=== PATIENT | male | born 1950 | race Caucasian/White ===

== ENCOUNTER 2019-06-15 14:38 | Emergency (ER) | payer MEDICARE, BC ==
[2019-06-15 15:37] VITALS: BP 144/95
--- NOTE | 2019-06-15 15:54 | EDM.PDOC ---
ED HPI GENERAL MEDICAL PROBLEM - General Chief Complaint: Lower Extremity Injury/Pain Stated Complaint: SWOLLEN RIGHT LEG & DISCOLORED Time Seen by Provider: 06/15/19 15:43 Source of Information: Reports: Patient History Limitations: Reports: No Limitations - History of Present Illness INITIAL COMMENTS - FREE TEXT/NARRATIVE: Patient is a 68-year-old male who presents to the ED complaining of pain, bruising, some mild swelling along the right posterior knee. Started this past Monday and has progressed. Does not recall any activity or trauma that may have precipitated this. States he is on Coumadin for repeated blood clots. Last INR was this past Monday and was high per patient. Notes some increasing pain to the affected area. No loss of sensation. Has been mildly short of breath at the end of the day and with exertion. Suspects chronic. Denies any chest pain, PND , orthopnea, increased edema, hemoptysis, cough, fever, or abdominal pain. Right Leg Pain Score (Numeric/FACES): 5 - Related Data Allergies Allergy/AdvReac Type Severity Reaction Status Date / Time No Known Allergies Allergy Verified 06/15/19 15:37 Home Meds: Home Meds ClonazePAM [KlonoPIN] 0.5 mg PO BEDTIME 03/25/16 [History] ClonazePAM [KlonoPIN] 0.25 mg PO Q12HR PRN 10/24/16 [History] Psyllium Husk [Psyllium Fiber] 1 tbsp PO DAILY PRN 10/24/16 [History] Bisacodyl [Dulcolax] 5 mg PO DAILY PRN #30 tablet 10/25/16 [Rx] Cyclobenzaprine [Flexeril] 10 mg PO Q8H #60 tablet 10/28/16 [Rx] Lisinopril [Prinivil] 20 mg PO DAILY #30 tablet 10/28/16 [Rx] Pantoprazole [ProTONIX] 40 mg PO DAILY #30 tab.cr 10/28/16 [Rx] L.acidoph,Paracasei, B.lactis [Probiotic] 1 tab PO DAILY 06/15/19 [History] Rosuvastatin [Crestor] 5 mg PO DAILY 06/15/19 [History] Tamsulosin [Flomax] 0.4 mg PO DAILY 06/15/19 [History] Warfarin Sodium [Coumadin] 2.5 mg PO TUTHSA 06/15/19 [History] Warfarin Sodium [Coumadin] 5 mg PO SUMOWEFR 06/15/19 [History] traMADol [Ultram] 50 mg PO ASDIRECTED PRN 06/15/19 [History] Past Medical History HEENT History: Reports: Hard of Hearing, Impaired Vision Other HEENT History: 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 Gastrointestinal History: Reports: Diverticulosis Genitourinary History: Reports: Prostate Disorder Other Genitourinary History: enlarged prostate Other Musculoskeletal History: Right knee, leg, hip, groin pain last 6 months. 10 years ago trauma to right knee - gives him pain. herniated discs Neurological History: Reports: Vertigo Other Neuro History: dizziness but comes and goes Psychiatric History: Reports: Anxiety, Depression Other Psychiatric History: Anxiety gives him some dizziness and heart palpatation feelings - does well on antianxiety Hematologic History: Reports: Anticoagulation Therapy - Infectious Disease History Infectious Disease History: Reports: Chicken Pox, Influenza, Shingles Other Infectious Disease History: Shilgles in Left eye a 4-5 years ago - Past Surgical History Cardiovascular Surgical History: Reports: Other (See Below) Other Cardiovascular Surgeries/Procedures: angioplasty GI Surgical History: Reports: Colonoscopy, Hernia, Inguinal Neurological Surgical History: Reports: None Musculoskeletal Surgical History: Reports: Other (See Below) Dermatological Surgical History: Reports: None Social & Family History - Family History HEENT: Reports: Glaucoma, Impaired Vision Other HEENT Family History: siblings Cardiac: Reports: CAD, High Cholesterol, Hypertension, Stent Other Cardiac Family History: brothers, mom Respiratory: Reports: COPD Other Respiratory Family Hisory: sister GI: Reports: Diverticulitis Other GI Family History: sister : Reports: Other (See Below) Other Family History: brother enlarged prostates OBGYN: Reports: Musculoskeletal: Reports: Back pain, Chronic Other Musculoskeletal Family History: mom and brother had back surgery,bone fusions Hematologic: Reports: Anemia Other Hematologic Family History: brother aplastic anemia - Tobacco Use Smoking Status *Q: Former Smoker Used Tobacco, but Quit: Yes Month/Year Tobacco Last Used: 1967 - Caffeine Use Caffeine Use: Reports: None - Recreational Drug Use Recreational Drug Use: No - Living Situation & Occupation Occupation: Employed Review of Systems - Review of Systems Review Of Systems: ROS reveals no pertinent complaints other than HPI. ED EXAM, GENERAL - Physical Exam Exam: See Below Exam Limited By: No Limitations General Appearance: Alert, WD/WN, No Apparent Distress Ears: Hearing Grossly Normal Nose: Normal Inspection Throat/Mouth: Normal Voice, No Airway Compromise Head: Atraumatic, Normocephalic Neck: Normal Inspection, Supple Respiratory/Chest: No Respiratory Distress, Lungs Clear, Normal Breath Sounds, No Accessory Muscle Use, Chest Non-Tender Cardiovascular: Normal Peripheral Pulses, Regular Rate, Rhythm, No Murmur Peripheral Pulses: 2+: Radial (L), Radial (R), Posterior Tibial (L), Posterior Tibial (R) GI/Abdominal: Normal Bowel Sounds, Soft, Non-Tender, No Organomegaly, No Distention Extremities: Other (Mild swelling noted to the right posterior knee with bruising present. No limitation with range of motion noted. No pain to the posterior S at the lower leg with palpation. No bruising, redness, increased warmth, or findings concerning for infection.) Neurological: Alert, Oriented, CN II-XII Intact, Normal Cognition, No Motor/ Sensory Deficits Psychiatric: Normal Affect, Normal Mood Skin Exam: Warm, Dry, Intact, Normal Color Course - Vital Signs Last Recorded V/S: Last Vital Signs Temp 97.3 F 06/15/19 15:33 Pulse 77 06/15/19 15:33 Resp 20 06/15/19 15:33 BP 144/95 H 06/15/19 15:33 Pulse Ox 95 06/15/19 15:33 - Orders/Labs/Meds Orders: Active Orders 24 hr Category Date Time Status EKG Documentation Completion [RC] STAT Care 06/15/19 15:50 Active Chest 1V Frontal [CR] Stat Exams 06/15/19 15:50 Taken Labs: Laboratory Tests 06/15/19 06/15/19 06/15/19 Range/Units 13:56 13:56 13:56 WBC 7.57 (4.23-9.07) K/mm3 RBC 5.26 (4.63-6.08) M/mm3 Hgb 14.9 (13.7-17.5) gm/L Hct 45.8 (40.1-51.0) % MCV 87.1 (79.0-92.2) fl MCH 28.3 (25.7-32.2) pg MCHC 32.5 (32.2-35.5) g/dl RDW Std Deviation 45.5 H (35.1-43.9) fL Plt Count 153 L (163-337) K/mm3 MPV 10.9 (9.4-12.3) fl Neutrophils % (Manual) 72 H (40-60) % Band Neutrophils % 0 (0-10) % Lymphocytes % (Manual) 17 L (20-40) % Atypical Lymphs % 0 % Monocytes % (Manual) 8 (2-10) % Eosinophils % (Manual) 3 (0.8-7.0) % Basophils % (Manual) 0 L (0.2-1.2) Platelet Estimate Adequate RBC Morph Comment Normal PT 27.2 H (9.7-12.0) SECONDS INR 2.64 APTT 40 H (22-31) SECONDS Sodium 140 (136-145) mEq/L Potassium 4.1 (3.5-5.1) mEq/L Chloride 104 (98-107) mEq/L Carbon Dioxide 27 (21-32) mEq/L Anion Gap 13.1 (5-15) BUN 18 (7-18) mg/dL Creatinine 0.9 (0.7-1.3) mg/dL Est Cr Clr Drug Dosing 68.92 mL/min Estimated GFR (MDRD) > 60 (>60) mL/min BUN/Creatinine Ratio 20.0 H (14-18) Glucose 88 (80-115) mg/dL Calcium 8.9 (8.5-10.1) mg/dL Total Bilirubin 0.8 (0.2-1.0) mg/dL AST 24 (15-37) U/L ALT 23 (16-63) U/L Alkaline Phosphatase 52 (46-116) U/L Troponin I (0.00-0.056) ng/mL C-Reactive Protein 0.8 (<1.0) mg/dL Total Protein 7.2 (6.4-8.2) g/dl Albumin 3.5 (3.4-5.0) g/dl Globulin 3.7 gm/dL Albumin/Globulin Ratio 1.0 (1-2) 06/15/19 Range/Units 13:56 WBC (4.23-9.07) K/mm3 RBC (4.63-6.08) M/mm3 Hgb (13.7-17.5) gm/L Hct (40.1-51.0) % MCV (79.0-92.2) fl MCH (25.7-32.2) pg MCHC (32.2-35.5) g/dl RDW Std Deviation (35.1-43.9) fL Plt Count (163-337) K/mm3 MPV (9.4-12.3) fl Neutrophils % (Manual) (40-60) % Band Neutrophils % (0-10) % Lymphocytes % (Manual) (20-40) % Atypical Lymphs % % Monocytes % (Manual) (2-10) % Eosinophils % (Manual) (0.8-7.0) % Basophils % (Manual) (0.2-1.2) Platelet Estimate RBC Morph Comment PT (9.7-12.0) SECONDS INR APTT (22-31) SECONDS Sodium (136-145) mEq/L Potassium (3.5-5.1) mEq/L Chloride (98-107) mEq/L Carbon Dioxide (21-32) mEq/L Anion Gap (5-15) BUN (7-18) mg/dL Creatinine (0.7-1.3) mg/dL Est Cr Clr Drug Dosing mL/min Estimated GFR (MDRD) (>60) mL/min BUN/Creatinine Ratio (14-18) Glucose (80-115) mg/dL Calcium (8.5-10.1) mg/dL Total Bilirubin (0.2-1.0) mg/dL AST (15-37) U/L ALT (16-63) U/L Alkaline Phosphatase (46-116) U/L Troponin I < 0.017 (0.00-0.056) ng/mL C-Reactive Protein (<1.0) mg/dL Total Protein (6.4-8.2) g/dl Albumin (3.4-5.0) g/dl Globulin gm/dL Albumin/Globulin Ratio (1-2) - Re-Assessments/Exams Free Text/Narrative Re-Assessment/Exam: Will go ahead and obtain feel duplex right lower extremity to evaluate for blood clot. I suspect this more likely secondary to recent trauma with history of elevated INR this past Monday. Initial labs and will include: CBC, chem 14, CRP, coag studies. Due to shortness of breath in the afternoon with no PND or orthopnea suspect this is more likely related to deconditioning. He's had no cough, fever, or hemoptysis. I will obtain EKG, chest x-ray, and troponin. 06/15/19 17:44 Labs reviewed: Chem 14 essentially normal, CRP normal, troponin less than 0.017, hemoglobin 14.9, white blood cell count 7.57, platelet count 153, neutrophil percentage is elevated at 72 with no left shift, and INR is 2.64. INR is therapeutic. Ultrasound of the right lower extremity revealed no deep venous thrombosis. Discussed results of labs and ultrasound with patient. Return precautions discussed with patient. He voiced his understanding. He will followup with PCP as needed. Discharge instructions as documented. Departure - Departure Time of Disposition: 17:45 Disposition: Home, Self-Care 01 Condition: Good Clinical Impression: Hematoma, Posterior right knee pain - Discharge Information Instructions: Knee Pain, Adult Referrals: Svetlana Boogie PA-C [Primary Care Provider] - Forms: ED Department Discharge Additional Instructions: Ultrasound revealed no blood clot. INR is therapeutic at 2.64. Continue taking all your home medications as prescribed. May apply warm compresses to the posterior aspect of your leg to help dissipate the hematoma. Refrain from any activities that cause worsening pain. Monitor for worsening symptoms. Please f /u with PCP this coming week. Return to the E.D. for any new or worsening symptoms. - My Orders Last 24 Hours: My Active Orders 06/15/19 15:50 EKG Documentation Completion [RC] STAT Chest 1V Frontal [CR] Stat - Assessment/Plan Last 24 Hours: My Active Orders 06/15/19 15:50 EKG Documentation Completion [RC] STAT Chest 1V Frontal [CR] Stat
--- NOTE | 2019-06-15 17:36 | US ---
Right lower extremity deep venous ultrasound: Duplex and color flow imaging was obtained of the right common femoral, proximal greater saphenous, superficial femoral, popliteal, posterior tibial and peroneal veins. Left common femoral vein was also evaluated. Findings: Normal phasic flow, augmentation and compression is seen. Impression: 1. No deep venous thrombosis is seen within the right lower extremity or within the left common femoral vein. Diagnostic code #1
--- NOTE | 2019-06-16 12:23 | CR ---
Chest: Portable view of the chest was obtained. Comparison: Prior chest x-ray of 11/03/18. Heart size is slightly prominent but accentuated from portable technique. Tortuous thoracic aorta is identified. Slight nodular density which is believed to represent minimal atelectasis is seen within the lateral left costophrenic angle. Lungs otherwise are clear with no acute parenchymal change. Mild degenerative change is partially visualized within the lumbar spine. Impression: 1. Findings as noted above. Nothing acute is identified on portable chest x-ray. Diagnostic code #2
== END 2019-06-15 17:58 | disposition home or self-care (01) ==
LOC: JD.ED 14:38
DX: S80.01XA Contusion of right knee, initial encounter (principal); I10 Essential (primary) hypertension; F41.9 Anxiety disorder, unspecified; F32.9 Major depressive disorder, single episode, unspecified; Z79.899 Other long term (current) drug therapy; Z79.01 Long term (current) use of anticoagulants; Z86.718 Personal history of other venous thrombosis and embolism; X58.XXXA Exposure to other specified factors, initial encounter
CPT/HCPCS: 36415; 71045; 71045-26; 80053; 84484; 85007; 85027; 85610; 85730; 86140; 93005; 93971-26-RT; 93971-RT; 99284-25

== ENCOUNTER 2019-08-01 15:52 | Emergency (ER) | payer MEDICARE, BC ==
[2019-08-01 16:13] VITALS: BP 156/79; PULSE 69
--- NOTE | 2019-08-01 16:25 | EDM.PDOC ---
ED HPI GENERAL MEDICAL PROBLEM - General Chief Complaint: Lower Extremity Injury/Pain Stated Complaint: L FOOT SKIN COMPLAINT Time Seen by Provider: 08/01/19 16:25 Source of Information: Reports: Patient History Limitations: Reports: No Limitations - History of Present Illness INITIAL COMMENTS - FREE TEXT/NARRATIVE: 68-year-old male presents to the ED at the request of his primary care practitioner Dilma Boogie in [facility]. he reports that on July 28 he was stacking cans of beans in his cupboard at home and one fell off landing on the dorsal aspect of his left foot. He had a stocking on at that time. The area subsequently became very bruised swollen and ecchymotic. It also then developed to subcutaneous blisters filled with blood. The doctor on Monday and was started on cephalexin 500 mg 3 times a day. He has no fever or chills. His appetite remains good. On review today however the foot is looking much worse of course because of increased ecchymoses as he is on Coumadin. It also started to show signs of cellulitis with an increased area of warmth all way up his right leg particularly around where his boot would go. He is wearing a cast boot brace that he had on his left leg after pulling his gastrocnemius muscle. He states his only thing he could get on with a large blisters on his dorsal foot. Walking with a definitive limb. He states the pain is intensified in the dorsal aspect of the foot and up his anterior leg. This is in spite of being on antibiotic therapy for the last 2 and half days. He is not diabetic. 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 Was felt to be prudent that he stay on Coumadin for the rest of his life. He reports that his legs are chronically edematous particularly the right one more so than the left. He is supposed to wear compression stockings but states it's too hard to get them on and off. He sometimes will wrap his legs with Julio wraps. Onset: Sudden Onset Date: 07/28/19 Duration: Day(s):, Constant, Getting Worse Location: Reports: Lower Extremity, Left (Left dorsal foot and now pain rating up his left anterior leg.) Quality: Reports: Ache, Throbbing Severity: Moderate Improves with: Reports: Rest (In elevation.) Worsens with: Reports: Other (Walking.) Context: Denies: Activity, Exercise, Lifting, Sick Contact, Trauma, Other Associated Symptoms: Reports: Malaise. 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 (see below) (None.) Left Feet Pain Score (Numeric/FACES): 5 - Related Data Allergies Allergy/AdvReac Type Severity Reaction Status Date / Time No Known Allergies Allergy Verified 06/15/19 15:37 Home Meds: Home Meds Psyllium Husk [Psyllium Fiber] 1 tbsp PO DAILY PRN 10/24/16 [History] Rosuvastatin [Crestor] 5 mg PO BEDTIME 06/15/19 [History] Tamsulosin [Flomax] 0.4 mg PO DAILY 06/15/19 [History] Warfarin Sodium [Coumadin] 2.5 mg PO MOWETH 06/15/19 [History] Warfarin Sodium [Coumadin] 5 mg PO SUTUFRSA 06/15/19 [History] traMADol [Ultram] 50 mg PO TID PRN 06/15/19 [History] Bacitracin 30 gm TP DAILY #1 tube 08/01/19 [Rx] Cephalexin [Keflex] 500 mg PO TID 08/01/19 [History] Cyclobenzaprine [Flexeril] 10 mg PO DAILY 08/01/19 [History] Doxycycline [Vibramycin] 100 mg PO DAILY #20 cap 08/01/19 [Rx] Lisinopril 30 mg PO DAILY 08/01/19 [History] Past Medical History HEENT History: Reports: Hard of Hearing, Impaired Vision Other HEENT History: 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 Gastrointestinal History: Reports: Diverticulosis Genitourinary History: Reports: Prostate Disorder Other Genitourinary History: enlarged prostate Other Musculoskeletal History: Right knee, leg, hip, groin pain last 6 months. 10 years ago trauma to right knee - gives him pain. herniated discs Neurological History: Reports: Vertigo Other Neuro History: dizziness but comes and goes Psychiatric History: Reports: Anxiety, Depression Other Psychiatric History: Anxiety gives him some dizziness and heart palpatation feelings - does well on antianxiety Hematologic History: Reports: Anticoagulation Therapy - Infectious Disease History Infectious Disease History: Reports: Chicken Pox, Influenza, Shingles Other Infectious Disease History: Shilgles in Left eye a 4-5 years ago - Past Surgical History Cardiovascular Surgical History: Reports: Other (See Below) Other Cardiovascular Surgeries/Procedures: angioplasty GI Surgical History: Reports: Colonoscopy, Hernia, Inguinal Neurological Surgical History: Reports: None Musculoskeletal Surgical History: Reports: Other (See Below) Dermatological Surgical History: Reports: None Social & Family History - Family History HEENT: Reports: Glaucoma, Impaired Vision Other HEENT Family History: siblings Cardiac: Reports: CAD, High Cholesterol, Hypertension, Stent Other Cardiac Family History: brothers, mom Respiratory: Reports: COPD Other Respiratory Family Hisory: sister GI: Reports: Diverticulitis Other GI Family History: sister : Reports: Other (See Below) Other Family History: brother enlarged prostates OBGYN: Reports: Musculoskeletal: Reports: Back pain, Chronic Other Musculoskeletal Family History: mom and brother had back surgery,bone fusions Hematologic: Reports: Anemia Other Hematologic Family History: brother aplastic anemia - Tobacco Use Smoking Status *Q: Former Smoker Used Tobacco, but Quit: Yes Month/Year Tobacco Last Used: 1977 - Caffeine Use Caffeine Use: Reports: None - Recreational Drug Use Recreational Drug Use: No - Living Situation & Occupation Occupation: Employed Review of Systems - Review of Systems Review Of Systems: See Below Constitutional: Reports: No Symptoms Eyes: Reports: Glasses Ears: Reports: No Symptoms Nose: Reports: No Symptoms Mouth/Throat: Reports: No Symptoms Respiratory: Reports: No Symptoms Cardiovascular: Reports: No Symptoms GI/Abdominal: Reports: No Symptoms Genitourinary: Reports: Other (Urinary frequency which is common.) Musculoskeletal: Reports: Leg Pain (Currently having a lot of pain in his left dorsal foot and left lower leg. Leg pain), Foot Pain, Other (Chronic swelling and edema both lower extremities worse on the right as compared to the left.) Skin: Reports: Other (2 large blisters dorsal aspect of his left foot one of which has opened up and drained spontaneously. The wound was opened up in the ED and cultures were obtained.) Neurological: Reports: Paresthesia Psychiatric: Reports: No Symptoms ED EXAM, GENERAL - Physical Exam Exam: See Below Exam Limited By: No Limitations General Appearance: Alert, WD/WN, No Apparent Distress, Other (Temp to 36.1. Pulse is 69 and sinus respiratory distress 20. Sats are 96% on room air BP slightly elevated 156/79.) Eye Exam: Bilateral Eye: Normal Inspection Respiratory/Chest: No Respiratory Distress, Lungs Clear (Mildly decreased air into the lower 20% of lung anderson bilaterally.), Normal Breath Sounds, No Accessory Muscle Use, Decreased Breath Sounds Cardiovascular: Regular Rate, Rhythm, No Gallop, No Murmur, No Rub. No: Normal Peripheral Pulses, No Edema Peripheral Pulses: 1+: Posterior Tibial (L), Posterior Tibial (R), Dorsalis Pedis (L), Dorsalis Pedis (R) GI/Abdominal: Normal Bowel Sounds, Soft, Non-Tender, No Organomegaly, No Abnormal Bruit, No Mass, Pelvis Stable, Other (Male) Exam: No Hernia (No previous abdominal surgery.) Back Exam: Normal Inspection, Full Range of Motion. No: CVA Tenderness (L), CVA Tenderness (R) Extremities: Other (Examination the right lower extremity shows 2+ to 3+ pitting edema. The left lower extremity shows 2+ pitting edema. The left foot shows diffuse ecchymoses to dorsal aspect of all of his toes dorsal aspect of the entire foot with increased erythema surrounding an open blister mid dorsal foot. There is also an area of erythema in a band like fashion on his mid left leg. It is warm to palpation and mildly tender. It has the appearance of a cellulitis developing. The other blister that was more distal to the one that had already broken open was drained with an 18-gauge needle and cultures were obtained from this area as well as the dorsal aspect of the foot. Drained serosanguineous fluid.) Neurological: Alert, Oriented, CN II-XII Intact, Normal Cognition, Other. No: Normal Gait Psychiatric: Normal Affect (Limping gait.), Normal Mood Skin Exam: Warm, Dry, Ecchymosis, Erythema (A ecchymoses dorsal aspect left foot.), Increased Warmth ( Erythema with increased warmth wrist last back left foot and leg.), Other (2 large blisters dorsal aspect left foot one of which is already opened and drained and the second was drained in the ED.). No: Intact Course - Vital Signs Last Recorded V/S: Last Vital Signs Temp 36.1 C 08/01/19 16:11 Pulse 69 08/01/19 16:11 Resp 20 08/01/19 16:11 BP 156/79 H 08/01/19 16:11 Pulse Ox 96 08/01/19 16:11 - Orders/Labs/Meds Orders: Active Orders 24 hr Category Date Time Status Peripheral IV Care [RC] . DIRECTED Care 08/01/19 16:35 Active Foot 2V Lt [CR] Stat Exams 08/01/19 16:58 Taken CULTURE ANAEROBIC + SMEAR [RM] Stat Lab 08/01/19 17:09 Ordered CULTURE BLOOD [BC] Stat Lab 08/01/19 16:35 Ordered CULTURE BLOOD [BC] Stat Lab 08/01/19 16:35 Ordered CULTURE WOUND [RM] Stat Lab 08/01/19 17:07 Ordered CULTURE WOUND [RM] Stat Lab 08/01/19 17:14 Ordered Ondansetron [Zofran ODT] Med 08/01/19 18:24 Once 4 mg PO ONETIME ONE Sodium Chloride 0.9% [Saline Flush] Med 08/01/19 16:33 Active 10 ml FLUSH ASDIRECTED PRN cefTRIAXone [Rocephin] 2 gm Med 08/01/19 16:45 Active Sodium Chloride 0.9% [Normal Saline] 100 ml IV Q24H Blood Culture x2 Reflex Set [OM.PC] Stat Oth 08/01/19 16:34 Ordered Peripheral IV Insertion Adult [OM.PC] Stat Oth 08/01/19 16:35 Ordered Medication Orders Ceftriaxone Sodium 2 gm/ (Sodium Chloride) 100 mls @ 200 mls/hr IV Q24H PHYLLIS Last Admin: 08/01/19 17:51 Dose: 200 mls/hr Ondansetron HCl (Zofran Odt) 4 mg PO ONETIME ONE Stop: 08/01/19 18:25 Sodium Chloride (Saline Flush) 10 ml FLUSH ASDIRECTED PRN PRN Reason: Keep Vein Open Last Admin: 08/01/19 17:51 Dose: 10 ml Labs: Laboratory Tests 08/01/19 08/01/19 08/01/19 Range/Units 16:50 16:50 16:50 WBC 6.71 (4.23-9.07) K/mm3 RBC 5.11 (4.63-6.08) M/mm3 Hgb 14.4 (13.7-17.5) gm/dl Hct 44.6 (40.1-51.0) % MCV 87.3 (79.0-92.2) fl MCH 28.2 (25.7-32.2) pg MCHC 32.3 (32.2-35.5) g/dl RDW Std Deviation 45.3 H (35.1-43.9) fL Plt Count 149 L (163-337) K/mm3 MPV 10.9 (9.4-12.3) fl Neutrophils % (Manual) 70 H (40-60) % Band Neutrophils % 1 (0-10) % Lymphocytes % (Manual) 20 (20-40) % Atypical Lymphs % 0 % Monocytes % (Manual) 3 (2-10) % Eosinophils % (Manual) 6 (0.8-7.0) % Basophils % (Manual) 0 L (0.2-1.2) Platelet Estimate Adequate RBC Morph Comment Normal ESR (0-15) mm/hr PT 13.0 H D (9.7-12.0) SECONDS INR 1.21 Sodium 141 (136-145) mEq/L Potassium 4.1 (3.5-5.1) mEq/L Chloride 106 (98-107) mEq/L Carbon Dioxide 28 (21-32) mEq/L Anion Gap 11.1 (5-15) BUN 15 (7-18) mg/dL Creatinine 0.9 (0.7-1.3) mg/dL Est Cr Clr Drug Dosing 68.92 mL/min Estimated GFR (MDRD) > 60 (>60) mL/min BUN/Creatinine Ratio 16.7 (14-18) Glucose 94 (80-115) mg/dL Calcium 8.9 (8.5-10.1) mg/dL Magnesium 2.5 H (1.8-2.4) mg/dl Total Bilirubin 0.7 (0.2-1.0) mg/dL AST 19 (15-37) U/L ALT 26 (16-63) U/L Alkaline Phosphatase 62 (46-116) U/L C-Reactive Protein 0.7 (<1.0) mg/dL NT-Pro-B Natriuret Pep (0-125) pg/mL Total Protein 7.3 (6.4-8.2) g/dl Albumin 3.6 (3.4-5.0) g/dl Globulin 3.7 gm/dL Albumin/Globulin Ratio 1.0 (1-2) 08/01/19 08/01/19 Range/Units 16:50 16:50 WBC (4.23-9.07) K/mm3 RBC (4.63-6.08) M/mm3 Hgb (13.7-17.5) gm/dl Hct (40.1-51.0) % MCV (79.0-92.2) fl MCH (25.7-32.2) pg MCHC (32.2-35.5) g/dl RDW Std Deviation (35.1-43.9) fL Plt Count (163-337) K/mm3 MPV (9.4-12.3) fl Neutrophils % (Manual) (40-60) % Band Neutrophils % (0-10) % Lymphocytes % (Manual) (20-40) % Atypical Lymphs % % Monocytes % (Manual) (2-10) % Eosinophils % (Manual) (0.8-7.0) % Basophils % (Manual) (0.2-1.2) Platelet Estimate RBC Morph Comment ESR 12 (0-15) mm/hr PT (9.7-12.0) SECONDS INR Sodium (136-145) mEq/L Potassium (3.5-5.1) mEq/L Chloride (98-107) mEq/L Carbon Dioxide (21-32) mEq/L Anion Gap (5-15) BUN (7-18) mg/dL Creatinine (0.7-1.3) mg/dL Est Cr Clr Drug Dosing mL/min Estimated GFR (MDRD) (>60) mL/min BUN/Creatinine Ratio (14-18) Glucose (80-115) mg/dL Calcium (8.5-10.1) mg/dL Magnesium (1.8-2.4) mg/dl Total Bilirubin (0.2-1.0) mg/dL AST (15-37) U/L ALT (16-63) U/L Alkaline Phosphatase (46-116) U/L C-Reactive Protein (<1.0) mg/dL NT-Pro-B Natriuret Pep 109 (0-125) pg/mL Total Protein (6.4-8.2) g/dl Albumin (3.4-5.0) g/dl Globulin gm/dL Albumin/Globulin Ratio (1-2) Meds: Medications Generic Name Dose Route Start Last Admin Trade Name Freq PRN Reason Stop Dose Admin Ceftriaxone Sodium 2 gm/ 100 mls @ 200 mls/hr 08/01/19 16:45 08/01/19 17:51 Sodium Chloride IV 200 mls/hr Q24H PHYLLIS Administration Ondansetron HCl 4 mg 08/01/19 18:24 Zofran Odt PO 08/01/19 18:25 ONETIME ONE Sodium Chloride 10 ml 08/01/19 16:33 08/01/19 17:51 Saline Flush FLUSH 10 ml ASDIRECTED PRN Administration Keep Vein Open Discontinued Medications Generic Name Dose Route Start Last Admin Trade Name Freq PRN Reason Stop Dose Admin Doxycycline Hyclate 200 mg 08/01/19 17:28 08/01/19 17:51 Vibramycin PO 08/01/19 17:29 200 mg ONETIME ONE Administration - Radiology Interpretation Free Text/Narrative:: 68-year-old male reports to the ED at the request of his primary care provider in [facility]. He should have an acute injury to the dorsal aspect of his left foot when he was stacking beans in the cupboard on July 28. On the cans fell out of the cupboard and landed on his dorsal aspect of his left foot. He was wearing a stocking at the time. 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 Subsequently he developed 2 large blisters on the dorsal aspect of his left foot. He has bilateral dependent edema bilaterally which probably help contribute to blister formation. Seen in the clinic on July 30 and started on cephalexin 500 mg 3 times a day which he has been taking. On review of his worse today when the blisters have ruptured as it was wrapped he doesn't know when. In the area is becoming more erythematous and warm to palpation and he is having increasing pain in this area suggestive of developing cellulitis. He has an area on his mid anterior left leg that is also erythematous and very warm to palpation with 2+ pitting edema. Sugars were obtained from the blister that opened and the blister that was already opened. I 'll have x-rays of his left foot carried out. Labs to be done to include CRP and sedimentation rate. Will be started on Rocephin 2 g intravenously as soon as blood cultures 2 been collected. - Re-Assessments/Exams Free Text/Narrative Re-Assessment/Exam: 08/01/19 17:57 Labs reveal a normal white count at 6.71. The differential is 70 % neutrophils and 1% band cells. Hemoglobin is 14.4 with hematocrit of 44.6. Platelet callus 149,000. Sedimentation rate is 12. PT is 13.0 with an INR 1.21 a subtherapeutic INR. Sodium is 141 with a potassium of 4.1. Chloride is 106 with a bicarbonate of 28. Anion gap is 11.1. BUN is 15 with a creatinine of 0.9. GFR is greater than 60. Glucose is 94 and calcium of 8.9. Magnesium is slightly high at 2.5. Liver function is normal. C-reactive protein is 0.7. BNP is 109. Total protein is 7.3 with albumin fraction of 3.6. The patient therefore will not have to stay in the hospital. His will be dressed daily with bacitracin ointment and I would suggest Dilma Boogie arrange for home care for him to have his wounds dressed and wrapped around daily for the next 2 weeks as this will take between 2 and 3 weeks to heal completely. He needs to elevate his feet as much as possible to reduce the amount of edema to allow the wounds to heal. I'm going to discontinue his cephalexin and placed on doxycycline 100 mg twice a day for 10 days just to make sure we have coverage for MRSA. Advised him to follow-up in the clinic tomorrow but he's not sure this is possible as is to take his brother to [place]. He prefers to get his medication filled in [place]. Departure - Departure Time of Disposition: 18:25 Disposition: Home, Self-Care 01 Condition: Fair Clinical Impression: Contusion of dorsum of foot, Cellulitis of left foot, Subtherapeutic international normalized ratio (INR) - Discharge Information *PRESCRIPTION DRUG MONITORING PROGRAM REVIEWED*: Not Applicable *COPY OF PRESCRIPTION DRUG MONITORING REPORT IN PATIENT RONNI: Not Applicable Prescriptions: Bacitracin 30 gm TP DAILY #1 tube Doxycycline [Vibramycin] 100 mg PO DAILY #20 cap Referrals: Svetlana Boogie PA-C [Primary Care Provider] - Forms: ED Department Discharge Additional Instructions: Evaluation in the emergency room today in regards to injuries to the dorsal aspect of your left foot that occurred 5 days ago when a can of beans spilled out of the cupboard and landed on top of your left foot. This resulted in marked contusion and hematoma formation dorsal aspect of left foot with 2 large blisters forming over the last several days. One of the blisters is ruptured sometime in the last 48 hours and the second one was ruptured today in the ED. Cultures were obtained from the wounds. Your total white blood count is only 6.71 and there is no signs of systemic infection at this time. Therefore treatment is to cleanse the wound daily with soap and water. Showering is okay. Then apply a liberal amount of bacitracin cream to the area once daily and rapid to keep it clean until it heals. This will take about 14 days to heal. Stop your current dosage of Keflex and replace it with Doxycycline 100 mg twice daily for the next 10 days to clear up infection - My Orders Last 24 Hours: My Active Orders 08/01/19 16:33 Sodium Chloride 0.9% [Saline Flush] 10 ml FLUSH ASDIRECTED PRN 08/01/19 16:34 Blood Culture x2 Reflex Set [OM.PC] Stat 08/01/19 16:35 Peripheral IV Care [RC] . DIRECTED CULTURE BLOOD [BC] Stat CULTURE BLOOD [BC] Stat Peripheral IV Insertion Adult [OM.PC] Stat 08/01/19 16:45 cefTRIAXone [Rocephin] 2 gm Sodium Chloride 0.9% [Normal Saline] 100 ml IV Q24H 08/01/19 16:58 Foot 2V Lt [CR] Stat 08/01/19 17:07 CULTURE WOUND [RM] Stat 08/01/19 17:09 CULTURE ANAEROBIC + SMEAR [RM] Stat 08/01/19 17:14 CULTURE WOUND [RM] Stat 08/01/19 18:24 Ondansetron [Zofran ODT] 4 mg PO ONETIME ONE - Assessment/Plan Last 24 Hours: My Active Orders 08/01/19 16:33 Sodium Chloride 0.9% [Saline Flush] 10 ml FLUSH ASDIRECTED PRN 08/01/19 16:34 Blood Culture x2 Reflex Set [OM.PC] Stat 08/01/19 16:35 Peripheral IV Care [RC] . DIRECTED CULTURE BLOOD [BC] Stat CULTURE BLOOD [BC] Stat Peripheral IV Insertion Adult [OM.PC] Stat 08/01/19 16:45 cefTRIAXone [Rocephin] 2 gm Sodium Chloride 0.9% [Normal Saline] 100 ml IV Q24H 08/01/19 16:58 Foot 2V Lt [CR] Stat 08/01/19 17:07 CULTURE WOUND [RM] Stat 08/01/19 17:09 CULTURE ANAEROBIC + SMEAR [RM] Stat 08/01/19 17:14 CULTURE WOUND [RM] Stat 08/01/19 18:24 Ondansetron [Zofran ODT] 4 mg PO ONETIME ONE
[2019-08-01] MEDS ORDERED: Sodium Chloride 0.9% 10 ML Syringe FLUSH PRN (16:33)
[2019-08-01] MEDS ORDERED: cefTRIAXone 2 GM in Sodium Chloride 0.9% 100 ML IV SCH (16:45)
[2019-08-01] MEDS ORDERED: Doxycycline 100 MG Cap PO ONE (17:28)
[2019-08-01] MEDS ORDERED: Ondansetron 4 MG Tab.DIS PO ONE (18:24)
--- NOTE | 2019-08-02 07:13 | CR ---
Left foot: Two views of the left foot were obtained. Diffuse soft tissue swelling is noted. Frontal view is less than optimal due to underpenetration. No discrete fracture is appreciated. Small bony density is seen off the dorsal talus which appears old and likely due to old injury. Impression: 1. Diffuse soft tissue swelling. No definite acute abnormality is seen. Because of the underpenetration of the study on the frontal view, if patient remains symptomatic recommend repeat study in 10-14 days. Diagnostic code #3
== END 2019-08-01 18:55 | disposition home or self-care (01) ==
LOC: JD.ED 15:52
DX: S90.32XA Contusion of left foot, initial encounter (principal); L03.116 Cellulitis of left lower limb; R79.1 Abnormal coagulation profile; I10 Essential (primary) hypertension; I82.409 Acute embolism and thrombosis of unspecified deep veins of unspecified lower extremity; N42.9 Disorder of prostate, unspecified; Z79.01 Long term (current) use of anticoagulants; Z79.899 Other long term (current) drug therapy; Z87.891 Personal history of nicotine dependence; W20.8XXA Other cause of strike by thrown, projected or falling object, initial encounter; Y93.89 Activity, other specified; Y92.009 Unspecified place in unspecified non-institutional (private) residence as the place of occurrence of the external cause
CPT/HCPCS: 36415; 73620; 80053; 83735; 83880; 85007; 85027; 85610; 85652; 86140; 87040; 87070; 87075; 87205; 96365; 99283; A9270; J0696; J7030

== ENCOUNTER 2024-06-14 12:32 | Emergency (ER) | payer MEDICARE, BC ==
[2024-06-14 13:32] LABS: BASOPHILS PERCENT AUTO 0.7 % (0.0-1.0); EOSINOPHILS PERCENT AUTO 0.7 % (0.0-6.0); HEMATOCRIT 47.5 % (42.0-52.0); IMMATURE GRAN ABSOLUTE AUTO 0.02 K/mm3 (0.00-0.05); IMMATURE GRAN PERCENT AUTO 0.3 % (0.0-0.4); LYMPHOCYTES PERCENT AUTO 16.3 % (24.0-44.0); MEAN CORPUSCULAR HEMOGLOBIN 29.3 pg (28.0-32.0); MEAN CORPUSCULAR HGB CONC 33.7 g/dl (32.0-36.0); MEAN CORPUSCULAR VOLUME 86.8 fl (83.0-99.0); MEAN PLATELET VOLUME 10.1 fl (9.4-12.4); MONOCYTES ABSOLUTE AUTO 0.4 K/mm3 (0.0-0.8); NEUTROPHILS ABSOLUTE AUTO 4.7 K/mm3 (1.8-7.7); PLATELET COUNT,PLT 129 K/mm3 (150-400); RED BLOOD CELL COUNT 5.47 M/mm3 (4.52-5.90); WHITE BLOOD CELL COUNT,WBC 6.15 K/mm3 (3.9-11.3)
[2024-06-14 13:49] LABS: INR 1.05; PROTHROMBIN TIME 11.1 SECONDS (9.7-12.0)
[2024-06-14 14:02] LABS: LACTIC ACID 0.6 mmol/L (0.4-2.0)
[2024-06-14] MEDS: Dextrose 5%-0.9% NaCl 1,000 ML IV SCH (14:06)
[2024-06-14 14:12] LABS: A/G RATIO 1.1 (1-2); ALANINE AMINOTRANSFERASE,ALT 35 U/L (16-63); ALBUMIN 3.8 g/dl (3.4-5.0); ALKALINE PHOSPHATASE 46 U/L (46-116); ANION GAP 13.8 (5-15); ASPARTATE AMNIOTRANSFERASE,AST 26 U/L (15-37); BLOOD UREA NITROGEN,BUN 12 mg/dL (7-18); C-REACTIVE PROTEIN 0.08 mg/dL (<0.30); CALCIUM 9.3 mg/dL (8.5-10.1); CARBON DIOXIDE,CO2 28 mEq/L (21-32); CHLORIDE,CL 104 mEq/L (98-107); CREATININE 0.8 mg/dL (0.7-1.3); ESTIMATED GFR 92 mL/min (>60); GLUCOSE RANDOM 103 mg/dL (70-99); MAGNESIUM 2.1 mg/dL (1.8-2.4); POTASSIUM,K 3.8 mEq/L (3.5-5.1); PROTEIN TOTAL,TP 7.2 g/dl (6.4-8.2); SODIUM,NA 142 mEq/L (136-145); TROPONIN I HIGH SENSITIVITY 14 pg/mL (<=76); TSH 0.773 uIU/mL (0.358-3.74)
[2024-06-14 14:19] LABS: APPEARANCE,URINE CLEAR (Clear); BILIRUBIN,URINE NEGATIVE (Negative); COLOR,URINE YELLOW (Yellow); GLUCOSE,URINE NEGATIVE (Negative); KETONES,URINE NEGATIVE (Negative); LEUKOCYTE ESTERASE,URINE NEGATIVE (Negative); NITRITE,URINE NEGATIVE (Negative); OCCULT BLOOD,URINE TRACE-LYSED (Negative); PROTEIN,URINE NEGATIVE (Negative); UROBILINOGEN,URINE 0.2 (0.2-1.0)
[2024-06-14 14:26] LABS: BACTERIA,URINE RARE /hpf (FEW); EPITHELIAL CELLS,URINE 0-5 /hpf (0-5); MUCUS,URINE RARE /hpf (FEW); RBC,URINE 0-5 /hpf (0-5); WBC,URINE 0-5 /hpf (0-5)
[2024-06-14 20:38] VITALS: BP 155/79; PULSE 74
== END 2024-06-14 17:30 | disposition home or self-care (01) ==
LOC: JD.ED 12:32
DX: H57.12 Ocular pain, left eye (principal); J01.00 Acute maxillary sinusitis, unspecified; I10 Essential (primary) hypertension; Z79.899 Other long term (current) drug therapy
CPT/HCPCS: 36415; 70450; 70486; 71045; 80053; 81001; 82947; 83605; 83735; 83880; 84443; 84484; 85025; 85610; 85730; 86140; 93005; 96360; 96361; 99285; J7042; 93010; 99284